=== PATIENT | male | born 1960 | race Caucasian/White ===

== ENCOUNTER 2021-07-27 13:38 | Emergency (ER) | payer MEDICARE ==
[~2021-07-27 13:38] MED LIST: ADVAIR 250-501 EACH INH; ALPRAZOLAM2 MG PO; AMLODIPINE BESY10 MG PO; ASPIR 8181 MG PO; ASPIRIN CHEWABL81 MG PO; DEXTROAMPHETAMI10 MG PO; FLONASE 0.05% N16 GM; LOPRESSOR 25 MG25 MG PO; LUVOX TAB 100100 MG PO; MAXALT10 MG PO; METHOCARBAMOL750 MG PO; MIRTAZAPINE45 MG PO; NORTRIPTYLINE H25 MG PO; PROTONIX40 MG PO; PROZAC 20 MG CA20 MG PO; RIZATRIPTAN10 M1 PO; SEROQUEL XR400 MG PO; SUMATRIPTAN SUC50 MG PO; TOPROL XL50 MG PO; TYLENOL WITH C1 EACH PO; VALIUM5 MG PO; VENTOLIN HFA 66.7 GM INH; VIIBRYD20 MG PO; WIXELA 250-501 EACH NEB; ZOFRAN ODT 4 MG4 MG SL; ZOFRAN4 MG PO; [UNRECOGNIZED DRUG - OTHER]
[2021-07-27 14:30] LABS: HEMOGLOBIN 15.7 gm/dl (14.0-17.5); RED BLOOD COUNT 5.11 M/UL (4.20-5.50); WHITE BLOOD COUNT 7.8 K/UL (4.5-11.0)
[2021-07-27] MEDS ORDERED: PHENERGAN 12.12.5 M1 PO (20:27)
[2021-07-27] MEDS ORDERED: BENTYL 20MG TAB20 MG PO (20:27)
[2021-07-27] MEDS ORDERED: COLACE100 MG PO (20:27)
== END 2021-07-27 20:56 | disposition home or self-care (01) ==
LOC: ER1 13:38
PROVIDERS: Physician Assistant Medical
DX: K59.00 Constipation, unspecified (principal); R10.9 Unspecified abdominal pain; R11.2 Nausea with vomiting, unspecified; R00.2 Palpitations; R19.7 Diarrhea, unspecified; N18.9 Chronic kidney disease, unspecified; I12.9 Hypertensive chronic kidney disease with stage 1 through stage 4 chronic kidney disease, or unspecified chronic kidney disease; Z20.822 Contact with and (suspected) exposure to COVID-19
CPT/HCPCS: 71045; 80053; 81001; 82550; 82553; 83605; 83690; 83874; 84484; 85025; 93005; 96374; 96375; 99285; J2270; J2550; J7030; U0002

== ENCOUNTER 2021-08-24 22:02 | Emergency (ER) | payer MEDICARE ==
[~2021-08-24 22:02] MED LIST changes: +BENTYL 20MG TAB20 MG PO; +COLACE100 MG PO; +PHENERGAN 12.12.5 M1 PO
[2021-08-24 23:03] LABS: HEMOGLOBIN 16.3 gm/dl (14.0-17.5); RED BLOOD COUNT 5.31 M/UL (4.20-5.50)
[2021-08-24 23:31] LABS: BUN/CREATININE RATIO 13 (0-10)
[2021-08-25] MEDS ORDERED: [UNRECOGNIZED DRUG - OTHER] (05:31)
[2021-08-25] MEDS ORDERED: BENTYL 10MG CAP10 MG PO (05:53)
[2021-08-25] MEDS ORDERED: ZOFRAN ODT 4 MG4 MG GT (05:54)
== END 2021-08-25 05:43 | disposition home or self-care (01) ==
LOC: ER1 22:02
PROVIDERS: Family Medicine; Physician Assistant
DX: I10 Essential (primary) hypertension (principal); E86.0 Dehydration; N17.9 Acute kidney failure, unspecified; Z90.5 Acquired absence of kidney; Z20.822 Contact with and (suspected) exposure to COVID-19
CPT/HCPCS: 71045; 80048; 82550; 82553; 83874; 84484; 85025; 93005; 96374; 96375; 99285; J2270; J2405; U0002

== ENCOUNTER 2021-09-03 05:06 | Emergency (ER) | payer MEDICARE ==
[~2021-09-03 05:06] MED LIST changes: +BENTYL 10MG CAP10 MG PO; +ZOFRAN ODT 4 MG4 MG GT; +[UNRECOGNIZED DRUG - OTHER]
[2021-09-03 05:48] LABS: HEMOGLOBIN 13.3 gm/dl (14.0-17.5); RED BLOOD COUNT 4.49 M/UL (4.20-5.50); WHITE BLOOD COUNT 6.1 K/UL (4.5-11.0)
[2021-09-03] MEDS ORDERED: ZOFRAN ODT 4 MG4 MG SL (09:04)
== END 2021-09-03 09:09 | disposition home or self-care (01) ==
LOC: ER1 05:06
PROVIDERS: Physician Assistant
DX: N28.1 Cyst of kidney, acquired (principal); N18.9 Chronic kidney disease, unspecified; R07.9 Chest pain, unspecified; I12.9 Hypertensive chronic kidney disease with stage 1 through stage 4 chronic kidney disease, or unspecified chronic kidney disease; Z90.5 Acquired absence of kidney; Z88.6 Allergy status to analgesic agent
CPT/HCPCS: 80053; 83605; 83690; 85025; 85652; 86140; 99284